=== PATIENT | female | born 1970 | race Caucasian/White ===

== ENCOUNTER → 2016-09-28 | Outpatient (CLI) | payer OTHER ==
--- NOTE | 2016-09-28 17:16 | DX ---
Sacroiliac Joints, 3 Views Total, at 3:49 p.m. Clinical History: 46-year-old female with chronic left-sided pelvic pain. ICD 10 Diagnostic Code: M53.3. Comparison Study: None. Findings: There is a T-shaped IUD projected to the left of midline over the upper sacrum. There is so me mild subchondral sclerosis associated with the SI joints, right greater than left. There is no mar ginal erosion or asymmetric diastasis. The sacral arcuate lines are well-contoured. The lumbosacral j unction appears normal. There is some fecal material which obscures portions of the pelvic osseous an atomy at the level of the symphysis pubis. Each femoral head is well-seated within its respective ivette tabulum. 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
== END ==
LOC: BRMIMAGING 15:37
PROVIDERS: ATTEND Physician Assistant Medical
DX: M53.3 Sacrococcygeal disorders, not elsewhere classified (principal)
CPT/HCPCS: 72202-PO

== ENCOUNTER → 2017-09-01 | Outpatient (CLI) | payer OTHER | LOC: BRMIMAGING 13:41 | PROVIDERS: ATTEND Physician Assistant Medical | DX: Z12.31 Encounter for screening mammogram for malignant neoplasm of breast (principal) | CPT/HCPCS: G0202 ==